=== PATIENT | male | born 2005 | race Caucasian/White ===

== ENCOUNTER 2023-10-29 06:23 | Day surgery (SDC) | payer OTHER, SELFPAY ==
[2023-10-29 10:40] VITALS: BMI 24.4
[2023-10-29 10:41] VITALS: BMI 24.4
[2023-10-29 10:42] VITALS: BP 134/70
[2023-10-29] MEDS: TYLENOL 1000 MG PO (10:49)
[2023-10-29 12:05] VITALS: BP 106/51
[2023-10-29 12:15] VITALS: BP 118/69
--- NOTE | 2023-10-29 12:22 | W.IMMPOSTOP ---
Surgical Immed Post Op Note
-
Primary Surgeon: Evelina
Assisting: Milena MENDOZA
Pre-op Diagnosis: Pilonidal disease
Post-op Diagnosis: Same
Procedure Performed: Excision of pilonidal disease
Anesthesia Type: MAC local
Specimen / Cultures: Pilonidal cyst and tract
Estimated Blood Loss: 5cc
Complications: None immediate
Operative Findings: Several midline pits, lacrimal probe tracked superiorly to a skin defect at over the lumbar spine at the midline; skin involving pits, tract, and skin defect all excised in toto down to the fascia; moist kerlix packing; final
wound size 10cm x 5cm x 4cm
--- NOTE | 2023-10-29 12:27 | OR.RPT ---
Operative Report
Operative Report
Primary Surgeon: Evelina
Assisting: Milena MENDOZA
Pre-op Diagnosis: Pilonidal disease
Post-op Diagnosis: Same
Procedure Performed: Excision of pilonidal disease
Anesthesia Type: MAC local
Specimen / Cultures: Pilonidal cyst and tract
Estimated Blood Loss: 5cc
Complications: None immediate
Operative Findings: Several midline pits, lacrimal probe tracked superiorly to a skin defect at over the lumbar spine at the midline; skin involving pits, tract, and skin defect all excised in toto down to the fascia; moist kerlix packing; final
wound size 10cm x 5cm x 4cm
Date of Surgery: 10/29/23
Indications: This 17M developed symptomatic pilonidal disease and excision with healing by secondary intention was elected.
PROCEDURE: After informed consent was obtained, the patient was brought to the operative suite and placed prone on the operating table. The patient was sedated, prepped and draped in the usual sterile manner and an adequate local anesthetic was
administered using a combination of lidocaine, bupivacaine and decadron.
A A lacrimal probe was inserted into each pit, they all tracked superiorly directly to the skin defect located over the lumbar spine. A full thickness elliptical incision was made in the skin with a #10 blade, encompassing all pits, the tract, and
the skin defect. The incision was carried down below the level of the tract with electrocautery. The skin containing the pits and the tract were kept contiguous during dissection. The skin was elevated with forceps and bovie electrocautery was used
to excise this area of skin. The wound base was then fulgurated and hemostasis was assured. The wound was then irrigated with copious sterile saline, and then packed with saline moistened kerlix, covered with an abd pad and secured with disposable
underwear. All surgical counts were reported as correct.
The patient tolerated the procedure well and was taken to the PACU in stable condition.
[2023-10-29 12:30] VITALS: BP 122/79
== END 2023-10-29 13:00 | disposition home or self-care (01) ==
LOC: SDS 06:23
PROVIDERS: ATTENDING PHYSICIAN Surgery
DX: L05.01 Pilonidal cyst with abscess (principal)
CPT/HCPCS: 11771; 88304